=== PATIENT | female | born 1960 | race Two or more races ===

== ENCOUNTER 2017-03-26 17:24 | Emergency (ER) | payer OTHER ==
[~2017-03-26] VITALS: Ht 162.6 cm; Wt 72.6 kg
[2017-03-26 17:26] VITALS: BP 146/86
[2017-03-26] MEDS ORDERED: CYCLOBENZAPRINE HCL 10 MG TAB PO ONE (21:15)
[2017-03-26] MEDS ORDERED: IBUPROFEN 600 MG TAB PO ONE (21:15)
== END 2017-03-26 22:00 | disposition home or self-care (01) ==
LOC: ER 17:37
DX: S46.911A Strain of unspecified muscle, fascia and tendon at shoulder and upper arm level, right arm, initial encounter (principal); S00.83XA Contusion of other part of head, initial encounter; R07.89 Other chest pain; V49.59XA Passenger injured in collision with other motor vehicles in traffic accident, initial encounter; Y93.89 Activity, other specified; Y99.8 Other external cause status; Y92.410 Unspecified street and highway as the place of occurrence of the external cause
CPT/HCPCS: 93005